=== PATIENT | female | born 1955 | race Caucasian/White ===

== ENCOUNTER 2020-04-14 22:21 | Emergency (ER) | payer MEDICARE, SELFPAY ==
--- NOTE | ~2020-04-14 | CT_ITS ---
EXAMINATION: CT abdomen pelvis wo con DATE: 04/14/2020 23:17 INDICATION: Left flank pain. Burning with urination. TECHNIQUE: Computed tomography (CT) of the abdomen and pelvis was performed without intravenous contr ast. The dose-length product was 467.51 mGy-cm. Automated exposure control and iterative reconstructi on technique were employed. COMPARISON: None. FINDINGS: There is bibasilar dependent atelectasis. Heart size normal. No significant pleural or myles cardial effusion. The liver, spleen, pancreas, adrenal glands and right kidney are unremarkable. There is a 3 mm left U VJ stone with mild left hydroureteronephrosis. There is infiltration of the left perinephric fat, pos sibly from pyelosinus extravasation or pyelonephritis. Gallbladder is present. Bowel pattern is nonobstructive. Status post hysterectomy and probable append ectomy. No free air or free fluid. No acute osseous abnormality. Mild lumbar spondylosis. IMPRESSION: 1. 3 mm left UVJ stone with mild left hydroureteronephrosis. Alteration of the left perinephric fat a nteriorly, possibly from pyelosinus extravasation or pyelonephritis. Reviewed, dictated and finalized at location A. IMPRESSION: 1. 3 mm left UVJ stone with mild left hydroureteronephrosis. Alteration of the left perinephric fat anteriorly, possibly from pyelosinus extravasation or pyel onephritis.
[2020-04-14 22:25] VITALS: BP 130/92; PULSE 74; RESP 19; TEMP 37; O2SAT 100
[2020-04-14 22:39] LABS: Basophils Absolute Auto 0.1 K/mm3 (0.0-0.1); Basophils Percent Auto 0.5 % (0.2-1.2); Eosinophils Absolute Auto 0.4 K/mm3 (0-0.3); Hematocrit 43.2 % (37.0-47.0); Hemoglobin 14.7 g/dL (12.0-15.0); Immature Granulocyte Percent A 0.8 % (0-0.5); Lymphocytes Percent Auto 32.4 % (18.3-44.2); Mean Corpuscular Volume 91.1 fl (80-100); Monocytes Absolute Auto 0.8 K/mm3 (0.1-0.6); Monocytes Percent Auto 6.2 % (2.6-8.5); Neutrophils Absolute Auto 7.2 K/mm3 (1.3-6.7); Neutrophils Percent Auto 57.1 % (45.5-73.1); Platelet Count Result 187 k/mm3 (150-375); Red Blood Count 4.74 M/mm3 (4.2-5.4); Red Cell Distribution Width 12.3 % (11.5-14.5); White Blood Count 12.7 K/mm3 (4.5-10.0)
[2020-04-14 22:51] LABS: Blood Urea Nitrogen 24 mg/dL (7-17); Calcium 9.3 mg/dL (8.4-10.2); Carbon Dioxide 29 mmol/L (22-30); Chloride 104 mmol/L (98-107); Estimated CRCL calculation 65 ml/min; Estimated Glomerular Filt Rate > 60; Glucose 134 mg/dL (65-105); Sodium 140 mmol/L (137-145)
[2020-04-14] MEDS: MORPHINE SULFATE 4 MG/ML INJ IV PUSH (23:02)
[2020-04-14] MEDS: ONDANSETRON INJ 4 MG/2 ML VIAL IV PUSH (23:02)
[2020-04-14 23:25] LABS: Add Urine Microscopic? YES; Appearance Urine Cloudy (Clear); Bilirubin Urine Negative (Negative); Blood Urine 2+ (Negative); Budding Yeast Urine Present /hpf; Color Urine Yellow (Yellow); Glucose Urine UA Negative (Negative); Ketones Urine Negative (Negative); Leukocyte Esterase Ur 2+ LEU/UL (Negative); Mucus Urine Rare /lpf; Nitrate Urine Negative (Negative); Protein Urine Negative (Negative); RBC Urine >75 /hpf (0-2); Specific Grav Ur 1.021 (1.001-1.035); Urobilinogen Urine Negative mg/dL (<2.0)
--- NOTE | 2020-04-14 23:26 | PC.NURSE ---
PT ASKING FOR ADDITIONAL PAIN MEDICATIONS. PT STATES I'M NOT A DRUGEE, BUT I TAKE 60 MG MORPHINE ER TWICE A DAY. PT STATES HER LAST DOSE WAS AT 1500 THIS AFTERNOON. PT STATES THAT THAT LITTLE DOSE OF 4 MG MORPHINE HAS DONE NOTHING . EDP DR ARRIETA MADE AWARE OF THIS CONVERSATION, NO NEW ORDERS AT THIS TIME.
[2020-04-14] MEDS: KETOROLAC 30 MG/ML VIAL (*BKC) IV PUSH (23:44)
--- NOTE | 2020-04-15 00:34 | ED.GENADULT ---
HPI - General Adult General Chief complaint: Abdominal Pain Stated complaint: KIDNEY STONE Time Seen by Provider: 04/14/20 23:37 History of Present Illness HPI narrative: Patient is a 65-year-old female who presents ER with left-sided abdominal pain radiating to her left flank. Sharp and sudden onset around 10 PM. Associated with waves of nausea and pain. No fevers or chills or sweats. History and family history of kidney stones but is never passed 1 herself. Is also noticed some urinary frequency and urgency with mild dysuria just this evening. No alleviating factors. Takes morphine chronically for pain. Related Data Home Medications Medication Instructions Recorded Confirmed morphine 60 mg PO BID 04/14/20 04/14/20 Allergies Allergy/AdvReac Type Severity Reaction Status Date / Time No Known Allergies Allergy Verified 04/14/20 22:35 Review of Systems Review of Systems: All systems reviewed & are unremarkable except as noted in HPI and below Constitutional: Constitutional: Denies chills, Denies fever(s) and Denies weakness Gastrointestinal: Gastrointestinal: Reports abdominal pain, Denies diarrhea, Reports nausea and Denies vomiting Genitourinary: Genitourinary: Denies hematuria, Reports nocturia, Reports dysuria and Reports flank pain Musculoskeletal: Musculoskeletal: Reports back pain (Chronic) PMF Past Medical History Medical History (Updated 04/15/20 @ 00:38 by Noel Dozier MD) Chronic back pain Surgical History Surgical History (Updated 04/15/20 @ 00:36 by Noel Dozier MD) History of back surgery Social History Social History (Updated 04/15/20 @ 00:36 by Noel Dozier MD) Substance use: never Gender identity (if verbalized by the patient): Female Exam Narrative: Exam Narrative: GENERAL: Well-appearing, well-nourished, and in no acute distress. HEAD: Normocephalic, atraumatic. ENT: Mucous membranes moist. CHEST: Clear to auscultation. No respiratory distress. HEART: Regular rate and rhythm. Normal peripheral pulses. ABDOMEN: Soft, nontender, nondistended. Back: No midline tenderness of the T/L-spine. Patient has left paraspinal muscular tenderness that she reports is chronic and does not feel its flank pain with percussion. No right CVA tenderness. EXTREMITIES: Normal range of motion. No edema. NEURO: Alert and oriented x3. Course Course Emergency Course: No improvement with morphine but significant improvement with Toradol. Informed of results. No evidence of infection in urine. Discharge home with supportive therapy. Vital Signs Vital signs: Vital Signs Temperature 98.6 F 04/14/20 22:25 Pulse Rate 74 04/14/20 22:25 Respiratory Rate 04/14/20 22:25 Blood Pressure 130/92 H 04/14/20 22:25 Pulse Oximetry 100 04/14/20 22:25 Temperature 98.6 F 04/14/20 22:25 Pulse Rate 74 04/14/20 22:25 Respiratory Rate 04/14/20 22:25 Blood Pressure 130/92 H 04/14/20 22:25 Pulse Oximetry 100 04/14/20 22:25 Medical Decision Making Vital Signs Vital Signs: Vital Signs Temperature 98.6 F 04/14/20 22:25 Pulse Rate 74 04/14/20 22:25 Respiratory Rate 04/14/20 22:25 Blood Pressure 130/92 H 04/14/20 22:25 Pulse Oximetry 100 04/14/20 22:25 Temperature 98.6 F 04/14/20 22:25 Pulse Rate 74 04/14/20 22:25 Respiratory Rate 04/14/20 22:25 Blood Pressure 130/92 H 04/14/20 22:25 Pulse Oximetry 100 04/14/20 22:25 Lab Data Result diagrams: 04/14/20 22:33 04/14/20 22:33 Labs: Lab Results 04/14/20 04/14/20 04/14/20 Range/Units 22:33 22:33 23:04 WBC 12.7 H (4.5-10.0) K/mm3 RBC 4.74 (4.2-5.4) M/mm3 Hgb 14.7 (12.0-15.0) g/dL Hct 43.2 (37.0-47.0) % MCV 91.1 (80-100) fl MCH 31.0 (26-34) pg MCHC 34.0 (32-36) g/dl RDW 12.3 (11.5-14.5) % Plt Count 187 (150-375) k/mm3 MPV 11.0 H (7.4-10.4) fl Immature Gran % (Auto) 0.8
[2020-04-15 00:55] VITALS: BP 134/82; PULSE 69; RESP 18; O2SAT 97
== END 2020-04-15 01:00 | disposition home or self-care (01) ==
PROVIDERS: Emergency Provider Emergency Medicine; PCP Internal Medicine
DX: N13.2 Hydronephrosis with renal and ureteral calculous obstruction (principal)
CPT/HCPCS: 36415; 74176; 80048; 81001; 85025; 87086; 87088; 96374; 96375; 99284; J1885; J2270; J2405